=== PATIENT | female | born 1960 | race Caucasian/White ===

== ENCOUNTER 2017-12-06 18:05 | Emergency (ER) | payer MEDICAID ==
[2017-12-06 18:20] VITALS: BP 144/71
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
--- NOTE | 2017-12-06 20:09 | ER Document Report ---
ED General - General Chief Complaint: Blurred Vision Stated Complaint: EYE PROBLEM Time Seen by Provider: 12/06/17 18:41 Mode of Arrival: Ambulatory Information source: Patient Notes: This is a 57-year-old female with a history of bipolar affective disorder that presents to the emergency room with several months worth of blurry vision. She is concerned about cataract development. She is new to the area and states that her sinuses have been bothering her as well. TRAVEL OUTSIDE OF THE [place] IN LAST 30 DAYS: No - HPI Onset: Other - Past few months Onset/Duration: Gradual Quality of pain: No pain Severity: None Pain Level: Denies Associated symptoms: Allergy/hay fever. denies: Chest pain, Chills, Fever, Shortness of breath Exacerbated by: Denies Relieved by: Denies Similar symptoms previously: No Recently seen / treated by doctor: No - Related Data Allergies/Adverse Reactions: Penicillins Allergy (Verified 12/06/17 18:08) Sulfa (Sulfonamide Antibiotics) Allergy (Verified 12/06/17 18:08) Past Medical History - General Information source: Patient - Social History Smoking Status: Current Every Day Smoker Cigarette use (# per day): Yes - 1 pack/day Chew tobacco use (# tins/day): No Smoking Education Provided: No Frequency of alcohol use: None Drug Abuse: None Lives with: Family Family History: None Patient has suicidal ideation: No Patient has homicidal ideation: No - Past Medical History Cardiac Medical History: Reports: Hx Hypercholesterolemia Renal/ Medical History: Denies: Hx Peritoneal Dialysis Musculoskeletal Medical History: Reports Hx Arthritis Psychiatric Medical History: Reports: Hx Bipolar Disorder, Hx Depression - & anxiety Past Surgical History: Reports: Hx Section - x2, Hx Orthopedic Surgery - carpal tunnel bilaterally Review of Systems - Review of Systems Constitutional: denies: Chills, Fever EENT: See HPI, Tearing, Other - Itchy eyes, sinus congestion Cardiovascular: No symptoms reported Respiratory: No symptoms reported Gastrointestinal: No symptoms reported Genitourinary: No symptoms reported Female Genitourinary: No symptoms reported Musculoskeletal: No symptoms reported Skin: No symptoms reported Hematologic/Lymphatic: No symptoms reported Neurological/Psychological: No symptoms reported Physical Exam - Vital signs Vitals: Temp Pulse Resp BP Pulse Ox 98.8 F 80 14 144/71 H 93 12/06/17 18:20 12/06/17 18:20 12/06/17 18:20 12/06/17 18:20 12/06/17 18:20 Notes: Physical exam: GENERAL: 57-year-old female, alert and oriented x3, no acute distress HEAD: Atraumatic, normocephalic. EYES: Pupils equal round and reactive to light, extraocular movements intact, sclera anicteric, conjunctiva are normal. There is sharp, no evidence of cataracts ENT: TMs normal, nares patent, oropharynx clear without exudates. Moist mucous membranes. NECK: Normal range of motion, supple without obvious mass or JVD. LUNGS: Breath sounds clear to auscultation bilaterally and equal. No wheezes rales or rhonchi. HEART: Regular rate and rhythm without murmurs, rubs or gallops. ABDOMEN: Soft, normoactive bowel sounds. No tenderness to palpation. No guarding, no rebound. No masses appreciated. EXTREMITIES: Normal range of motion, no pitting or edema. No clubbing or cyanosis. NEUROLOGICAL: Cranial nerves II through XII grossly intact. Normal speech, moving all extremities. PSYCH: Normal mood, normal affect. SKIN: Warm, Dry, normal turgor, no rashes or lesions noted. Course - Re-evaluation Re-evalutation: 12/06/17 23:59 Note: Patient is a long history of substance abuse and she said she was able to get off the drugs but her only vice at this time is that she smokes a pack a day and she says this is her crutch and she can come off it. She understands smoking is bad for her health but I did not push the issue. As far as her symptoms, they appear mostly to be allergies from the environment : She is going to take some Claritin [id number], she is on montelukast and I recommended she follow-up with an drill press operator for metal for a good eye exam. I do not see any evidence of cataracts. - Vital Signs Vital signs: Temp Pulse Resp BP Pulse Ox 98.8 F 80 14 144/71 H 93 12/06/17 18:20 12/06/17 18:20 12/06/17 18:20 12/06/17 18:20 12/06/17 18:20 Discharge - Discharge Clinical Impression: Blurry vision Condition: Stable Disposition: HOME, SELF-CARE Additional Instructions: As we discussed, I do not see any evidence of obvious cataracts but you do require a good eye exam. I put the number down for an eye doctor in [facility]. I would call the eye center and see what their rates are for and eye exam. Return to the emergency room for any chest pain, shortness of breath, abdominal pain, worsening vision changes or any complaints she getting worse. Referrals: ROXANE THAPA MD [ACTIVE STAFF] - Follow up as needed (This is a number of an eye doctor in [facility]: Call to see what their rates are for an eye exam.)
== END 2017-12-06 20:17 | disposition home or self-care (01) ==
LOC: ER 18:05
DX: H53.8 Other visual disturbances (principal); F17.210 Nicotine dependence, cigarettes, uncomplicated; E78.00 Pure hypercholesterolemia, unspecified; Z88.2 Allergy status to sulfonamides; Z88.0 Allergy status to penicillin
CPT/HCPCS: 99283